=== PATIENT | female | born 1950 | race Caucasian/White ===

== ENCOUNTER 2020-12-27 18:27 | Inpatient (IN) | payer OTHER ==
[~2020-12-27] VITALS: Ht 160 cm; Wt 91.0 kg
--- NOTE | 2020-12-27 18:43 | NUR ---
RECEIVED REPORT FROM ABRIL CANO. PT RESTING ON [employer]. ARACELIS. MONITORS APPLIED.
[2020-12-27 18:53] LABS: MEAN CORPUSCULAR HEMOGLOBIN 16.7 pg (27.0-34.8); PLATELET COUNT 354 x10^3/uL (130-400); RED BLOOD COUNT 4.54 x10^6/uL (3.82-5.3); RED CELL DISTRIBUTION WIDTH 19.6 % (9.6-15.2)
--- NOTE | 2020-12-27 19:03 | NUR ---
PT RESTING ON GURNEY. NADN. SMITH.
[2020-12-27 19:08] LABS: ALBUMIN 3.3 g/dL (3.4-5.0); ANION GAP 9 mmol/L (5-15); CALCIUM 9.5 mg/dL (8.5-10.1); CHLORIDE 104 mmol/L (98-107)
[2020-12-27 19:15] LABS: ALANINE AMINOTRANSFERASE 33 U/L (12-78); ALKALINE PHOSPHATASE 81 U/L (45-117); BILIRUBIN,TOTAL 0.6 mg/dL (0.2-1.0); CREATININE 0.98 mg/dL (0.55-1.02); TOTAL PROTEIN 7.4 g/dL (6.4-8.2); TROPONIN I 0.054 ng/mL (0.000-0.045)
[2020-12-27 19:22] LABS: MEAN CORPUSCULAR HGB CONC 29.6 g/dL (32.4-35.8)
[2020-12-27 19:25] LABS: <PLATELET ESTIMATE> ADEQUATE; <PLT MORPHOLOGY> NORMAL PLT MORPH; EOS#(MANUAL) 0.19 x10^3/uL (0.0-0.4); EOS% (MANUAL) 2 % (1-7); LYMPH#(MANUAL) 0.77 x10^3/uL (1-3.4); LYMPHS% (MANUAL) 8 % (22-44); MONOS#(MANUAL) 0.58 x10^3/uL (0.3-2.7); MONOS% (MANUAL) 6 % (2-9); SEG#(MANUAL) 8.06 x10^3/uL (1.8-6.8); SEGS% (MANUAL) 84 % (42-75)
[2020-12-27 19:27] LABS: ANISOCYTOSIS 1+; MICROCYTOSIS 1+
[2020-12-27 19:28] LABS: HYPOCHROMIA 1+; STOMATOCYTES 1+
[2020-12-27 19:29] LABS: OVALOCYTES 1+
--- NOTE | 2020-12-27 19:34 | NUR ---
PT CHART REVIEWED AND PLACED FOR RECHECK.
[2020-12-27] MEDS ORDERED: ASPIRIN 81 MG TABLET CHEW PO ONE (20:00)
--- NOTE | 2020-12-27 20:12 | NUR ---
PT RESTING ON GURNEY. NADN. SMITH.
[2020-12-27] MEDS ORDERED: POLYETHYLENE GLYCOL 17 GM PACKET PO PRN (21:00)
[2020-12-27] MEDS ORDERED: ACETAMINOPHEN 325 MG TABLET PO PRN (21:00)
[2020-12-27] MEDS ORDERED: NITROGLYCERIN 0.4 MG BOTTLE (25 TABS) SL PRN (21:00)
[2020-12-27] MEDS ORDERED: BISACODYL 10 MG SUPP PR PRN (21:00)
[2020-12-27] MEDS ORDERED: morphine SULFATE 10 MG/ML, 1ML IVPush PRN (21:00)
[2020-12-27] MEDS ORDERED: ONDANSETRON ODT 4 MG PO PRN (21:00)
[2020-12-27] MEDS ORDERED: POTASSIUM CHLORIDE 20 MEQ TAB.ER.PRT PO ONE (21:00)
--- NOTE | 2020-12-27 21:04 | NUR ---
REPORT GIVEN TO AMOL ELKINS RN. ALL QUESTIONS ANSWERED. AWAITING PT TRANSPORT.
[2020-12-27 22:05] VITALS: BP 134/79
[2020-12-27] MEDS ORDERED: PRAV20TA2 PO (22:40)
[2020-12-27] MEDS ORDERED: TIMO1DRO6 LEFTEYE (22:40)
[2020-12-27] MEDS ORDERED: LATA7.5D EACHEYE (22:40)
[2020-12-27] MEDS ORDERED: LOSA50TA14 PO (22:40)
[2020-12-27] MEDS ORDERED: RISE35TA5 PO (22:40)
[2020-12-27] MEDS ORDERED: HYDR12.517 PO (22:40)
[2020-12-27] MEDS: ATORVASTATIN 40 MG TABLET PO SCH (22:58)
[2020-12-27] MEDS: HEPARIN 5,000 UNITS/ML, 1ML SQ SCH (22:59)
[2020-12-27] MEDS: SODIUM CHLORIDE FLUSH 10ML SYR IVF SCH (23:02)
[2020-12-28 00:43] VITALS: BP 114/69
[2020-12-28 01:21] LABS: TROPONIN I 0.034 ng/mL (0.000-0.045)
[2020-12-28] MEDS ORDERED: ASPIRIN 81 MG TABLET EC PO SCH (06:00)
[2020-12-28] MEDS: HEPARIN 5,000 UNITS/ML, 1ML SQ SCH (06:01)
[2020-12-28 06:54] VITALS: BP 127/74
[2020-12-28 07:07] LABS: BASOPHILS % (AUTO) 0 % (0-1); EOSINOPHILS % (AUTO) 0 % (1-7); LYMPHOCYTES % (AUTO) 7 % (22-44); MEAN CORPUSCULAR HEMOGLOBIN 16.7 pg (27.0-34.8); MEAN PLATELET VOLUME 8.4 fL (7.4-10.4); MONOCYTES % (AUTO) 2 % (2-9); NEUTROPHILS % (AUTO) 91 % (42-75); PLATELET COUNT 350 x10^3/uL (130-400); RED BLOOD COUNT 4.57 x10^6/uL (3.82-5.3); RED CELL DISTRIBUTION WIDTH 19.3 % (9.6-15.2)
[2020-12-28 07:18] LABS: ANION GAP 8 mmol/L (5-15); CALCIUM 9.1 mg/dL (8.5-10.1); CHLORIDE 108 mmol/L (98-107); CHOLESTEROL, TOTAL 137 mg/dL (140-239); CREATININE 0.96 mg/dL (0.55-1.02); TRIGLYCERIDES 61 mg/dL (50-200); VLDL CHOLESTEROL 12 mg/dL (0-25)
[2020-12-28 07:22] LABS: HDL CHOL % 33 % (28-40); HDL CHOLESTEROL (DIRECT) 45 mg/dL (40-60); LDL CHOLESTEROL,CALCULATED 80 mg/dL (54-169); LDL/HDL RATIO 1.8 (0.5-3.0); TROPONIN I < 0.015 ng/mL (0.000-0.045)
[2020-12-28 07:29] LABS: MEAN CORPUSCULAR HGB CONC 29.8 g/dL (32.4-35.8)
[2020-12-28] MEDS: LOSARTAN 50MG TABLET PO SCH ×2 (08:45→08:59)
[2020-12-28] MEDS: SENNA/DOCUSATE TABLET PO SCH (08:45)
[2020-12-28] MEDS: SODIUM CHLORIDE FLUSH 10ML SYR IVF SCH ×2 (08:47→19:59)
[2020-12-28] MEDS: CALCIUM CARBONATE 500 MG TAB.CHEW PO PRN ×4 (10:54→22:00)
[2020-12-28] MEDS ORDERED: OMNIPAQUE 350 MG/ML, 100ML BOTTLE ONE (11:30)
[2020-12-28 13:18] VITALS: BP 144/74
[2020-12-28] MEDS ORDERED: HEPARIN 25,000 UNITS/250ML PMX 250 ML IV PRN (14:30)
[2020-12-28] MEDS ORDERED: HEPARIN 5,000 UNITS/ML, 1ML IV ONE (14:30)
[2020-12-28] MEDS ORDERED: HEPARIN 5,000 UNITS/ML, 1ML IV PRN (14:30)
[2020-12-28] MEDS ORDERED: GOLYTELY 4,000ML ORAL.SOL PO ONE (17:30)
[2020-12-28 19:02] VITALS: BP 100/60
[2020-12-28] MEDS: PRAVASTATIN 20 MG TABLET PO SCH ×2 (20:00→20:04)
[2020-12-28] MEDS: ATORVASTATIN 40 MG TABLET PO SCH (20:00)
[2020-12-29] MEDS: CALCIUM CARBONATE 500 MG TAB.CHEW PO PRN (00:37)
[2020-12-29 00:59] VITALS: BP 110/70
[2020-12-29 07:52] VITALS: BP 133/76
[2020-12-29] MEDS ORDERED: PANTOPRAZOLE 40 MG IV IVPush SCH (08:00)
[2020-12-29] MEDS ORDERED: ONDANSETRON 2MG/ML, 2ML IVPush PRN (08:30)
[2020-12-29] MEDS: SODIUM CHLORIDE FLUSH 10ML SYR IVF SCH (08:53)
[2020-12-29] MEDS: LOSARTAN 50MG TABLET PO SCH (08:53)
[2020-12-29] MEDS: SENNA/DOCUSATE TABLET PO SCH (08:53)
[2020-12-29] MEDS ORDERED: HEPARIN 5,000 UNITS/ML, 1ML IV PRN ×2 (13:00→16:30)
[2020-12-29] MEDS ORDERED: IRON SUCROSE COMPLEX 100MG/5ML IV ONE (13:00)
[2020-12-29] MEDS ORDERED: HEPARIN 25,000 UNITS/250ML PMX 250 ML IV PRN ×2 (13:00→16:11)
[2020-12-29] MEDS ORDERED: RIVA1TAB PO ×2 (13:35)
[2020-12-29] MEDS ORDERED: PANT40TA3 PO (13:35)
[2020-12-29] MEDS ORDERED: FERR324T5 PO (13:36)
[2020-12-29 13:59] VITALS: BP 122/76
[2020-12-29] MEDS ORDERED: APIX5TAB PO (14:29)
[2020-12-29] MEDS ORDERED: APIXABAN 5 MG TABLET PO SCH (16:45)
[2020-12-29] MEDS ORDERED: RIVAROXABAN 15 MG TABLET PO SCH (17:00)
[2021-01-19] MEDS ORDERED: RIVAROXABAN 20 MG TABLET PO SCH (17:00)
== END 2020-12-29 18:18 | disposition home or self-care (01) | DRG 175 ==
LOC: ED 18:35 → EDIP 20:16 → 5SO 22:00
PROVIDERS: ADMIT Family Medicine; ATTEND Hospitalist
PROC: 0DB68ZX Excision of Stomach, Via Natural or Artificial Opening Endoscopic, Diagnostic (ICD-10-PCS; principal; 2020-12-29 09:00)
DX: I26.99 Other pulmonary embolism without acute cor pulmonale (principal); I50.31 Acute diastolic (congestive) heart failure; J96.01 Acute respiratory failure with hypoxia; K22.10 Ulcer of esophagus without bleeding; D50.9 Iron deficiency anemia, unspecified; E78.5 Hyperlipidemia, unspecified; E87.6 Hypokalemia; H40.9 Unspecified glaucoma; I11.0 Hypertensive heart disease with heart failure; K21.9 Gastro-esophageal reflux disease without esophagitis; K26.9 Duodenal ulcer, unspecified as acute or chronic, without hemorrhage or perforation; K44.9 Diaphragmatic hernia without obstruction or gangrene; M81.0 Age-related osteoporosis without current pathological fracture; Z82.49 Family history of ischemic heart disease and other diseases of the circulatory system; Z83.3 Family history of diabetes mellitus; Z87.891 Personal history of nicotine dependence; Z20.822 Contact with and (suspected) exposure to COVID-19
CPT/HCPCS: 36415; 71275; 80048; 80053; 80061; 82728; 83540; 83550; 83880; 84484; 85014; 85018; 85025; 85379; 85520; 87635; 93005; 93306; 99285; G0378; J1644; J1756; Q0162; Q9967; C9113

== ENCOUNTER → 2021-02-14 | Outpatient (CLI) | payer OTHER ==
[~2021-02-14] MED LIST: APIX5TAB PO; FERR324T5 PO; HYDR12.517 PO; LATA7.5D EACHEYE; LOSA50TA14 PO; PANT40TA3 PO; PRAV20TA2 PO; RISE35TA5 PO; RIVA1TAB PO; TIMO1DRO6 LEFTEYE
[2021-02-14 11:07] LABS: BASOPHILS % (AUTO) 1 % (0-1); EOSINOPHILS % (AUTO) 5 % (1-7); LYMPHOCYTES % (AUTO) 29 % (22-44); MEAN CORPUSCULAR HEMOGLOBIN 17.1 pg (27.0-34.8); MEAN PLATELET VOLUME 8.7 fL (7.4-10.4); MONOCYTES % (AUTO) 9 % (2-9); NEUTROPHILS % (AUTO) 56 % (42-75); PLATELET COUNT 364 x10^3/uL (130-400); RED BLOOD COUNT 5.73 x10^6/uL (3.82-5.3); RED CELL DISTRIBUTION WIDTH 21.8 % (9.6-15.2)
[2021-02-14 11:21] LABS: MEAN CORPUSCULAR HGB CONC 29.4 g/dL (32.4-35.8)
[2021-02-14 11:24] LABS: ANION GAP 8 mmol/L (5-15); CALCIUM 9.6 mg/dL (8.5-10.1); CHLORIDE 106 mmol/L (98-107)
[2021-02-14 11:25] LABS: ALANINE AMINOTRANSFERASE 21 U/L (12-78); ALBUMIN 3.4 g/dL (3.4-5.0); ALKALINE PHOSPHATASE 62 U/L (45-117); BILIRUBIN,TOTAL 0.6 mg/dL (0.2-1.0); CREATININE 0.84 mg/dL (0.55-1.02); TOTAL PROTEIN 7.8 g/dL (6.4-8.2)
[2021-02-14 13:05] LABS: ANISOCYTOSIS 1+; MICROCYTOSIS 2+
[2021-02-14 13:06] LABS: <PLATELET ESTIMATE> ADEQUATE; <PLT MORPHOLOGY> NORMAL PLT MORPH; HYPOCHROMIA 2+; OVALOCYTES 1+
== END | disposition home or self-care (01) ==
LOC: LAB 10:33
PROVIDERS: ATTEND Internal Medicine Hematology & Oncology
DX: I26.99 Other pulmonary embolism without acute cor pulmonale (principal); D64.9 Anemia, unspecified; K25.4 Chronic or unspecified gastric ulcer with hemorrhage
CPT/HCPCS: 36415; 80053; 81240; 81241; 85025; 85300; 85303; 85306